=== PATIENT | female | born 1995 | race Caucasian/White ===

== ENCOUNTER 2022-06-05 12:54 | Outpatient (CLI) | payer SELFPAY ==
--- NOTE | ~2022-06-05 | US_ITS ---
EXAMINATION: US OB <=14 wk fetus w TV DATE: 06/05/2022 13:21 INDICATION: . Uncertain dates. TECHNIQUE: Real-time transabdominal and transvaginal pelvic ultrasound was performed. COMPARISON: None. FINDINGS: TRANSABDOMINAL ULTRASOUND: The uterus measures 9.3 x 4.2 x 5.4 cm. TRANSVAGINAL ULTRASOUND: There is an intrauterine gestational sac. A yolk sac is identified. The fet al crown rump length measures 5 mm, which correlates with an estimated gestational age of 6 weeks and 2 day(s) (+/-) 4 day(s). heart motion is identified measuring 128 beats per minute (bpm) by M- mode Doppler. The right ovary measures 3.1 x 2.2 x 2.2 cm. The left ovary measures 3.9 x 2.2 x 2.0 cm . There is no free fluid in the pelvis. IMPRESSION: 1. Single living intrauterine gestation with estimated date of delivery of 01/27/2023. Reviewed, dictated and finalized at location A. IMPRESSION: 1. Single living intrauterine gestation with estimated date of delivery of 01/15.
== END 2022-06-05 12:55 ==
PROVIDERS: PCP Family Medicine; Visit Provider Family Medicine
DX: Z34.91 Encounter for supervision of normal pregnancy, unspecified, first trimester (principal); Z3A.01 Less than 8 weeks gestation of pregnancy
CPT/HCPCS: 76801; 76817

== ENCOUNTER 2022-06-29 14:04 | Emergency (ER) | payer MEDICAID, SELFPAY ==
--- NOTE | ~2022-06-29 | US_ITS ---
EXAMINATION: US OB <= 14 weeks fetus DATE: 06/29/2022 14:53 INDICATION: Pain during first trimester TECHNIQUE: Real-time pelvic transabdominal and transvaginal ultrasound was performed. COMPARISON: None. FINDINGS: The uterus measures 12.9 x 9.2 x 6.1 cm. There is an intrauterine gestational sac. A yolk sac is identified. heart motion is identified measuring 166 beats per minute (bpm) by M-mode Do ppler. The crown rump length measures 3.3 cm, which correlates with an estimated gestational ag e of 10 weeks and 2 day(s) (+/-) 6 day(s). The right ovary measures 3.1 x 1.3 x 2.5 cm. The left ovary measures 2.2 x 2.4 x 1.0 cm. There is no free fluid in the pelvis. IMPRESSION: 1. Live intrauterine with an estimated gestational age of 10 weeks and 2 day(s) (+/-) 6 day (s) and an estimated delivery date of 01/23/2023. Reviewed, dictated and finalized at location F. IMPRESSION: 1. Live intrauterine with an estimated gestational age of 10 weeks an d 2 day(s) (+/-) 6 day(s) and an estimated delivery date of 01/23/2023.
[2022-06-29 14:24] VITALS: BP 106/64; PULSE 72; RESP 18; TEMP 36.3; O2SAT 98
[2022-06-29 14:46] LABS: Eosinophils Absolute Auto 0.09 K/mm3 (0.02-0.50); Eosinophils Percent Auto 1.1 % (1.0-6.0); Hematocrit 36.4 % (35.0-49.0); Hemoglobin 12.3 g/dL (12.0-15.0); Immature Granulocyte Absolute 0.02 K/mm3 (0.00-0.00); Immature Granulocyte Percent A 0.2 % (0.0-0.0); Lymphocytes Absolute Auto 1.96 K/mm3 (1.10-4.50); Mean Corpuscular HGB Conc 33.8 g/dL (32.0-36.0); Mean Corpuscular Hemoglobin 31.2 pg (27.0-31.0); Mean Corpuscular Volume 92.4 fL (78.0-102.0); Mean Platelet Volume 11.3 fl (9.2-11.8); Monocytes Absolute Auto 0.48 K/mm3 (0.10-0.90); Monocytes Percent Auto 5.9 % (2.0-11.0); Neutrophils Absolute Auto 5.6 K/mm3 (1.7-7.2); Neutrophils Percent Auto 68.8 % (50.0-70.0); Platelet Count Result 173 K/mm3 (150-420); Red Blood Count 3.94 M/mm3 (4.20-5.40); Red Cell Distribution Width 12.2 % (11.6-14.4); White Blood Count 8.2 K/mm3 (4.8-10.8)
--- NOTE | 2022-06-29 14:49 | PC.NURSE ---
1440 pt to US via w/c
--- NOTE | 2022-06-29 15:18 | PC.NURSE ---
[id number] pt returned from US no complaints at this time awaiting results. Pt denies pain at this time.
--- NOTE | 2022-06-29 15:50 | PC.NURSE ---
URINE SPECIMEN COLLECTED AND SENT TO LAB. PT AMBULATES TO AND RETURNS TO EXAM ROOM WITHOUT DIFFICULTY. WILL CONTINUE TO MONITOR.
[2022-06-29 15:53] LABS: Add Urine Microscopic? YES; Appearance Urine Slightly Cloudy (Clear); Bilirubin Urine Negative (Negative); Blood Urine Negative (Negative); Color Urine Yellow (Yellow); Glucose Urine UA Negative (Negative); Ketones Urine 3+ (Negative); Leukocyte Esterase Ur Trace (Negative); Nitrate Urine Negative (Negative); Protein Urine Negative (Negative); Specific Grav Ur 1.015 (1.010-1.020); Urobilinogen Urine 0.2 mg/dL (0.2-1.0)
--- NOTE | 2022-06-29 15:54 | ED.FEMALEGU ---
HPI - Female Genitourinary General Chief complaint: Urogenital-Female Stated complaint: FIRST TERM TROBBING IN PELVIC AREA Time Seen by Provider: 06/29/22 14:21 Source: patient Mode of arrival: ambulatory Limitations: no limitations History of Present Illness HPI Narrative: This is a 27-year-old female that is 11 weeks had an ultrasound performed which shows normal intrauterine on the 06 of June and presents today with some some pelvic throbbing otherwise some mild dysuria with no flank pain no fever chills no uterine bleeding no vaginal bleeding no dysuria no flank pain no nausea vomiting no diarrhea or constipation. MD elicited complaint: pelvic pain Related Data Allergies Allergy/AdvReac Type Severity Reaction Status Date / Time No Known Allergies Allergy Verified 06/29/22 14:34 Review of Systems Review of Systems: All systems reviewed & are unremarkable except as noted in HPI and below PMFSH Past Medical History Medical History Exam Const: General: healthy appearing and no acute distress HENMT: Head: normal to inspection Face/Nose/Sinus: Normal external nose present Face and sinus: normal facial exam Eyes: Conjunctivae: conjunctivae normal EOM: EOMs intact bilaterally Chest: Chest palpation & inspection: normal inspection of the chest Resp: Effort & Inspection: normal respiratory effort Auscultation: clear to auscultation bilaterally Cardio: Rate: regular rate Rhythm: regular rhythm GI: GI Palp: Yes Soft to palpation and Yes Tenderness to palpation present (GI) Urinary Catheter: Urinary Catheter: patent and draining Neuro: General: patient oriented x3, moves all extremities, no meningeal signs and no focal motor deficits Extrem: General: normal to inspection and no clubbing, cyanosis or edema Psych: Appearance: grossly normal Mental Status: mental status grossly normal Course Course Emergency Course: ultrasound revealed continued intrauterine patient is doing well labs reviewed with patient. Vital Signs Vital signs: Vital Signs Temperature 36.3 C L 06/29/22 14:24 Pulse Rate 72 06/29/22 14:24 Respiratory Rate 18 06/29/22 14:24 Blood Pressure 106/64 06/29/22 14:24 Pulse Oximetry 98 06/29/22 14:24 Oxygen Delivery Room Air 06/29/22 14:24 Temperature 36.3 C L 06/29/22 14:24 Pulse Rate 72 06/29/22 14:24 Respiratory Rate 18 06/29/22 14:24 Blood Pressure 106/64 06/29/22 14:24 Pulse Oximetry 98 06/29/22 14:24 Oxygen Delivery Room Air 06/29/22 14:24 MDM - Female Genitourinary Lab Data Result diagrams: 06/29/22 14:35 Labs: Lab Results 06/29/22 06/29/22 06/29/22 Range/Units 14:35 14:35 15:45 WBC 8.2 (4.8-10.8) K/mm3 RBC 3.94 L (4.20-5.40) M/mm3 Hgb 12.3 (12.0-15.0) g/dL Hct 36.4 (35.0-49.0) % MCV 92.4 (78.0-102.0) fL MCH 31.2 H (27.0-31.0) pg MCHC 33.8 (32.0-36.0) g/dL RDW 12.2 (11.6-14.4) % Plt Count 173 (150-420) K/mm3 MPV 11.3 (9.2-11.8) fl Immature Gran % (Auto) 0.2 H (0.0-0.0) % Neut % (Auto) 68.8 (50.0-70.0) % Lymph % (Auto) 24.0 (18.0-42.0) % [place] % (Auto) 5.9 (2.0-11.0) % Eos % (Auto) 1.1 (1.0-6.0) % Baso % (Auto) 0.0 (0.0-1.0) % Lymph # (Auto) 1.96 (1.10-4.50) K/mm3 [place] # (Auto) 0.48 (0.10-0.90) K/mm3 Eos # (Auto) 0.09 (0.02-0.50) K/mm3 Baso # (Auto) 0.00 (0.00-0.10) K/mm3 Abs Immat Gran (auto) 0.02 H (0.00-0.00) K/mm3 Absolute Neuts (auto) 5.6 (1.7-7.2) K/mm3 Absolute Nucleated RBC 0.00 (0.00-0.00) K/mm3 Nucleated RBC % 0.0 (0-0.0) % Beta HCG, Quant 36203.00 H (0-6) mIU/mL Urine Color Pending Urine Appearance Pending Urine pH Pending Ur Specific Whitman Pending Urine Protein Pending Urine Glucose (UA) Pending Urine Ketones Pending Ur Blo
[2022-06-29 15:56] LABS: RBC Urine None seen /hpf (0-2); Squamous Epithelial Cell Urine Moderate /hpf (Few); WBC Urine 0-3 /hpf (0-3)
[2022-06-29 15:57] LABS: Bacteria Urine 1+ /hpf; Mucus Urine Moderate /lpf
[2022-06-29 16:10] VITALS: BP 103/58; PULSE 57; RESP 14; O2SAT 100
--- NOTE | 2022-06-29 16:14 | PC.NURSE ---
1610 PT DECLINED HIV TESTING, REFUSAL SIGNED
== END 2022-06-29 16:10 | disposition home or self-care (01) ==
PROVIDERS: Emergency Provider Emergency Medicine
DX: N39.0 Urinary tract infection, site not specified (principal)
CPT/HCPCS: 36415; 76801; 81001; 84702; 85025; 99284

== ENCOUNTER 2022-07-31 10:19 | Outpatient (CLI) | payer OTHER, SELFPAY ==
[2022-07-31 11:15] LABS: Basophils Percent Auto 0.2 % (0.2-1.2); Eosinophils Percent Auto 0.2 % (0-4.4); Hematocrit 36.3 % (37.0-47.0); Hemoglobin 12.4 g/dL (12.0-15.0); Immature Granulocyte Absolute 0.03 K/mm3 (0.00-0.031); Immature Granulocyte Percent A 0.3 % (0-0.5); Lymphocytes Absolute Auto 1.35 K/mm3 (0.9-3.2); Lymphocytes Percent Auto 14.3 % (18.3-44.2); Mean Corpuscular HGB Conc 34.2 g/dl (32-36); Mean Corpuscular Hemoglobin 31.4 pg (26-34); Mean Corpuscular Volume 91.9 fl (80-100); Mean Platelet Volume 11.4 fl (7.4-10.4); Monocytes Absolute Auto 0.3 K/mm3 (0.1-0.6); Monocytes Percent Auto 3.2 % (2.6-8.5); Neutrophils Absolute Auto 7.7 K/mm3 (1.3-6.7); Neutrophils Percent Auto 81.8 % (45.5-73.1); Platelet Count Result 182 k/mm3 (150-375); Red Blood Count 3.95 M/mm3 (4.2-5.4); Red Cell Distribution Width 12.7 % (11.5-14.5); White Blood Count 9.5 K/mm3 (4.5-10.0)
[2022-07-31 12:05] LABS: HIV 1/2 Ab P24 Ag Result Negative (Negative)
[2022-07-31 12:18] LABS: Hepatitis B Surface Antigen Negative (Negative); Rubella IgG Antibody 9.1 IU/ML
[2022-08-01 10:20] LABS: Rapid Plasma Reagin Non-Reactive (NonReactive)
[2022-08-03 09:09] LABS: Varicella IgG Antibody <135.00 Index (>=165.00)
== END 2022-07-31 10:20 | disposition home or self-care (01) ==
PROVIDERS: Visit Provider Obstetrics & Gynecology
DX: Z34.90 Encounter for supervision of normal pregnancy, unspecified, unspecified trimester (principal); Z3A.00 Weeks of gestation of pregnancy not specified
CPT/HCPCS: 36415; 85025; 86592; 86644; 86703; 86747; 86762; 86787; 86850; 86900; 86901; 87086; 87340; G0432

== ENCOUNTER 2022-11-06 12:58 | Outpatient (CLI) | payer OTHER, SELFPAY ==
[2022-11-06 14:34] LABS: Basophils Percent Auto 0.2 % (0.2-1.2); Eosinophils Percent Auto 0.2 % (0-4.4); Hematocrit 32.7 % (37.0-47.0); Immature Granulocyte Absolute 0.12 K/mm3 (0.00-0.031); Immature Granulocyte Percent A 0.9 % (0-0.5); Lymphocytes Absolute Auto 1.38 K/mm3 (0.9-3.2); Lymphocytes Percent Auto 10.2 % (18.3-44.2); Mean Corpuscular HGB Conc 33.6 g/dl (32-36); Mean Corpuscular Volume 95.1 fl (80-100); Mean Platelet Volume 10.9 fl (7.4-10.4); Monocytes Absolute Auto 0.4 K/mm3 (0.1-0.6); Monocytes Percent Auto 3.2 % (2.6-8.5); Neutrophils Absolute Auto 11.6 K/mm3 (1.3-6.7); Neutrophils Percent Auto 85.3 % (45.5-73.1); Platelet Count Result 170 k/mm3 (150-375); Red Blood Count 3.44 M/mm3 (4.2-5.4); Red Cell Distribution Width 12.4 % (11.5-14.5); White Blood Count 13.6 K/mm3 (4.5-10.0)
[2022-11-06 14:39] LABS: Glucose 1 Hour PP 50gm Dose 133 mg/dL
[2022-11-06 15:19] LABS: HIV 1/2 Ab P24 Ag Result Negative (Negative)
[2022-11-06] MEDS: RHO(D) IMMUNE GLOBULIN 300 MCG/2 ML SYRINGE IM (17:28)
== END 2022-11-06 12:59 | disposition home or self-care (01) ==
PROVIDERS: Visit Provider Obstetrics & Gynecology
DX: Z34.90 Encounter for supervision of normal pregnancy, unspecified, unspecified trimester (principal)
CPT/HCPCS: 36415; 82947; 85025; 85461; 86703; 86850; 86900; 86901; 90384; 96372; G0432; J2790

== ENCOUNTER 2023-01-08 21:34 | Inpatient (IN) | payer OTHER, SELFPAY ==
[2023-01-08] VITALS (15 sets, daily range): BP systolic 102–128; BP diastolic 55–79; PULSE 87–105; O2SAT 100; BMI 31.2
--- NOTE | 2023-01-08 22:41 | LDADM ---
This patient, Aruna Gillis, was admitted to Labor/Delivery/Recovery 106 on 01/08/23 at 21:34. Plans for labor, pain management and were discussed with patient. Patient/family oriented to hospital policies and general routines including ID bracelet, bed and alarms, visiting hours, pain management, procedures, bathroom and other care routines, personal items, smoking policy, room service/diet and guest tray routines, security routines, and visiting hours. Patient/Family are encouraged to report perceived risks to care and to ask questions if they do not understand what they are told or what they should do. See OBIX for further documentation.
[2023-01-08] MEDS: LACTATED RINGERS 1,000 ML 125 ML IV CONT ×2 (22:50→23:54)
[2023-01-08 22:55] LABS: Basophils Percent Auto 0.3 % (0.2-1.2); Eosinophils Percent Auto 0.2 % (0-4.4); Hematocrit 37.4 % (37.0-47.0); Hemoglobin 11.9 g/dL (12.0-15.0); Immature Granulocyte Absolute 0.06 K/mm3 (0.00-0.031); Immature Granulocyte Percent A 0.4 % (0-0.5); Lymphocytes Absolute Auto 1.51 K/mm3 (0.9-3.2); Lymphocytes Percent Auto 10.3 % (18.3-44.2); Mean Corpuscular HGB Conc 31.8 g/dl (32-36); Mean Corpuscular Hemoglobin 30.4 pg (26-34); Mean Corpuscular Volume 95.7 fl (80-100); Mean Platelet Volume 12.7 fl (7.4-10.4); Monocytes Absolute Auto 0.9 K/mm3 (0.1-0.6); Neutrophils Absolute Auto 12.1 K/mm3 (1.3-6.7); Neutrophils Percent Auto 82.8 % (45.5-73.1); Platelet Count Result 123 k/mm3 (150-375); Red Blood Count 3.91 M/mm3 (4.2-5.4); Red Cell Distribution Width 13.1 % (11.5-14.5); White Blood Count 14.6 K/mm3 (4.5-10.0)
--- NOTE | 2023-01-08 23:31 | WPDANESEPP ---
Anes - Eval Pre Procedure Procedure: Labor epidural Date/Time: 01/08/23 23:31 Surgeon: Kumar Preop Diagnosis: Abd pain with contractions Pre Op Diagnosis: Contractions Patient Data Age: 27 Gender: F Height: 1.6 m Weight: 80 kg Last Vital Signs O2 Del Method Room Air 01/08/23 22:41 Allergies Allergy/AdvReac Type Severity Reaction Status Date / Time No Known Allergies Allergy Verified 01/08/23 10:09 Home Medications Medication Instructions Recorded Confirmed Type vitamins-iron fumarate 65 1 tablet PO DAILY 07/04/22 01/08/23 History mg iron-folic acid 1 mg tablet Laboratory Tests 01/08/23 01/08/23 22:46 22:46 WBC 14.6 K/mm3 H K/mm3 (4.5-10.0) RBC 3.91 M/mm3 L M/mm3 (4.2-5.4) Hgb 11.9 g/dL L g/dL (12.0-15.0) Hct 37.4 % % (37.0-47.0) MCV 95.7 fl fl (80-100) MCH 30.4 pg pg (26-34) MCHC 31.8 g/dl L g/dl (32-36) RDW 13.1 % % (11.5-14.5) Plt Count 123 k/mm3 L k/mm3 (150-375) MPV 12.7 fl H fl (7.4-10.4) Immature Gran % (Auto) 0.4 % % (0-0.5) Neut % (Auto) 82.8 % H % (45.5-73.1) Lymph % (Auto) 10.3 % L % (18.3-44.2) [place] % (Auto) 6.0 % % (2.6-8.5) Eos % (Auto) 0.2 % % (0-4.4) Baso % (Auto) 0.3 % % (0.2-1.2) Lymph # (Auto) 1.51 K/mm3 K/mm3 (0.9-3.2) [place] # (Auto) 0.9 K/mm3 H K/mm3 (0.1-0.6) Eos # (Auto) 0.0 K/mm3 K/mm3 (0-0.3) Baso # (Auto) 0.0 K/mm3 K/mm3 (0.0-0.1) Abs Immat Gran (auto) 0.06 K/mm3 H K/mm3 (0.00-0.031) Absolute Neuts (auto) 12.1 K/mm3 H K/mm3 (1.3-6.7) Absolute Nucleated RBC 0.0 K/mm3 K/mm3 (0.0-0.012) Nucleated RBC % 0.0 % % (0.0-0.2) RPR Pending Patient hx anesthesia problems: none Family hx anesthesia problems: none Results Review: All pre-operative results and documents have been reviewed as part of the pre-operative evaluation. [facility] Past Medical History Medical History Anxiety Overweight (BMI 25.0-29.9) Surgical History Surgical History History of gynecological procedure (~2014) scope for endometriosis Family History Family History Grandparent Malignant neoplasm of prostate maternal grandfather Acute myocardial infarction maternal grandfather Acute schizophrenia paternal grandmother Sibling Hearing loss Mental disorder Social History Social History Smoking status: Never smoker Alcohol intake: never Substance use: never Substance use type: does not use Lack of Transportation: No Lack of Food: Never True Current Housing: I Have Housing Concerned About Future Housing: No Difficulty Paying Gas/Electric Bills: No Difficulty Paying for Meds: No Currently Unemployed: No Education: High School Diploma/GED Difficulty w/ Childcare or Family Care: No Living arrangements: other Additional living arrangements comments: Occupation/Education: occupation 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
[2023-01-09] VITALS (113 sets, daily range): BP systolic 90–119; BP diastolic 42–90; PULSE 64–138; RESP 16; TEMP 36.2–37.2; O2SAT 81–100
[2023-01-09] MEDS: ONDANSETRON INJ 4 MG/2 ML VIAL IV PUSH (00:18)
[2023-01-09] MEDS: OXYTOCIN 30 UNITS/NS 500 ML 30 UNITS/500 ML BAG 6 UNITS IV CONT (07:47)
[2023-01-09] MEDS: LACTATED RINGERS 1,000 ML 125 ML IV CONT (07:48)
[2023-01-09 08:32] LABS: Rapid Plasma Reagin Non-Reactive (NonReactive)
[2023-01-09] MEDS: OXYTOCIN 30 UNITS/NS 500 ML 30 UNITS/500 ML BAG 125 UNITS IV CONT (11:05)
--- NOTE | 2023-01-09 11:27 | WPDHPUPDATE1 ---
History and Physical Update Update Date/Time: 01/09/23 11:27 History and Physical has been reviewed, including an updated exam of the patient. There are NO changes in the patient's condition. Risks, benefits, and alternatives have been discussed and questions answered. Patient agrees to proceed with procedure.
--- NOTE | 2023-01-09 11:27 | WPDOBADMIT ---
Obstetrics - Admit Note Admission Note: record reviewed. No pertinent additions to the history and/or any subsequent changes in the physical findings that are not consistent with the expected course of the were found. Additions to the history and/or subsequent changes in the physical findings follow. None.
--- NOTE | 2023-01-09 11:27 | PM.OBPRVD ---
OB - Delivery Note Procedure Induction method: None Delivery augmentation: Rupture of Membranes and Pitocin Delivery monitor: External FHT and External Uterine Route of delivery: Episiotomy description: None Laceration Description: Vaginal Delivery repair: chromic Specimen: No Quantitative Blood Loss (ml): 300 Anesthesia type: Epidural Disposition: Floor Complications: none Narrative: patient prepped in usual manner for this procedure. Maternal expulsive efforts readily delivered vertex over intact perineum. Rest baby was the without difficulty cord clamped cut and the placenta delivered spontaneously. Cervix vagina vulva were inspected with a midline vaginal wall laceration noted which was readily rendered hemostatic and approximated using a [id number] of 2-0 chromic suture. There were also some periurethral lacerations were not bleeding. At this point the immediate postoperative condition of mother baby with excellent and the procedure was considered terminated. Baby Weeks of gestation at delivery: 37 gender: Female Weight (pounds): 6 Weight (ounces): 13 presentation: vertex Placenta delivery description: Spontaneous Cord Vessel Description: 3 Vessels score one minute: 9 score five minutes: 9 AMG Delivery Billing Delivery Delivery: Delivery Charge
[2023-01-09] MEDS: IBUPROFEN 600 MG TABLET PO (12:08)
[2023-01-09] MEDS: WITCH HAZEL 40 PADS 1 PAD TOPICAL (12:48)
--- NOTE | 2023-01-09 15:04 | PC.NURSE ---
[id number] Primary RN is present in the room assisting mother with attempting to breastfeed. Introductions were made, then consulted with patient to assess needs related to . Mother shared her desires to breastfeed her infant. Resources provided for inpatient and outpatient services with the feeding sheet, mom/baby guide and name written on the white board. Mother voiced understanding of information and requested assistance. Mother works well with her with encouragement and education. Encouraged understanding of the benefits of skin to skin (demonstrating unwrapping infant and placing upright on her chest), stimulating with massage touch, changing positions to encourage wakefulness, how to watch for early feeding cues, responsive feeding, feeding on demand (aiming for 8-12 times in 24 hours, about every 2-3 hours), milk production, hand expression, building/maintaining a milk supply, duration of feeding, signs of adequate intake/output and how to record on the feeding sheet. is sleepy and reluctant. Demonstrated to mother different methods of stimulating for wakefulness. Mother return demonstrated how to hand express colostrum to her . After was spoon fed 5mls of colostrum was more eager to attempt to breastfeed. Reviewed positioning and ear, shoulder, hip alignment, supporting the breast to facilitate a deep latch with the sandwich U-shaped hold, asymmetrical latch (off-center), leading with the chin with a big, open, wide gape and body close to mother. Infant latched optimally to the left breast in cross cradle position. Education given to mother of how to visualize suck/swallow ratios and listen for drinking at the breast. was able to maintain latch without discomfort to mother. Nipple care reviewed with optimal latch and good positioning. Reviewed good handwashing when or touching the breast/nipples to prevent infection. Resources used to facilitate learning were used with the mom and baby guide. Mother voiced understanding of skin to skin, stimulating with massage touch, responsive feedings, hand expressed colostrum, talking to to encourage if it has been 2 -2.5 hours since the start of the last , to call if infant does not latch, or if there is discomfort with . Resources provided for inpatient/outpatient with business card, feeding sheet and the mom/baby guide. Mother voiced understanding of information, demonstrated learning and will call if there is a request for assistance. Reported to the primary RN.
[2023-01-09] MEDS: DOCUSATE SODIUM 100 MG CAPSULE PO (16:30)
[2023-01-09] MEDS: ACETAMINOPHEN 325 MG TABLET 650 MG PO (16:30)
[2023-01-10] MEDS: IBUPROFEN 600 MG TABLET PO ×3 (02:10→23:20)
[2023-01-10] MEDS: ACETAMINOPHEN 325 MG TABLET 650 MG PO ×3 (02:10→18:00)
[2023-01-10 02:35] LABS: Hematocrit 29.3 % (37.0-47.0); Hemoglobin 9.5 g/dL (12.0-15.0)
[2023-01-10 07:25] VITALS: BP 101/59; PULSE 78; RESP 16; TEMP 36.4; O2SAT 100
[2023-01-10 09:00] VITALS: PULSE 78; RESP 16; O2SAT 100
[2023-01-10] MEDS: WITCH HAZEL 40 PADS 1 PAD TOPICAL (09:00)
[2023-01-10] MEDS: MULTIVIT/MIN/PREN/FOL AC/IRON TABLET 1 TAB PO (09:00)
[2023-01-10] MEDS: POLYSACCHARIDE IRON COMPLEX 150 MG CAPSULE PO ×2 (09:00→18:00)
[2023-01-10] MEDS: DOCUSATE SODIUM 100 MG CAPSULE PO ×2 (09:00→18:00)
--- NOTE | 2023-01-10 10:19 | PC.NURSE ---
[id number] Purposefully rounded to assess needs. Mother states she breastfed at 0900 effectively, visualizing/hearing swallowing with no pain. Mother verbalizes she is able to independently latch with appropriate positioning/alignment. She denies any nipple discomfort and is responsively . Infant is currently meeting outcomes for weight, output, jaundice and feeding frequencies of 8-12 times in 24 hours. Mother declines any additional assistance/education at this time. Mother is encouraged to call for assistance if her infant doesn?t latch or there is discomfort with latching. Mother voiced understanding of information shared and the mom reminded of the mom/baby guide for an additional resource. Reported to the primary RN.
--- NOTE | 2023-01-10 10:46 | WPDANLDPN2 ---
Anes-Prog Note L&D Date/Time: 01/10/23 10:46 Comfortable throughout: labor and delivery Neuraxial method: epidural Epidural/Spinal procedure site: clean & non-tender Neuro status: Neuro function grossly intact. Cardiovascular status: normal Respiratory status: normal Airway patency: baseline Mental status: baseline Post-Op hydration status: normal Vital Signs: Last Vital Signs Temp 36.4 C L 01/10/23 07:25 Pulse 78 01/10/23 07:25 Resp 16 01/10/23 07:25 BP 101/59 L 01/10/23 07:25 Pulse Ox 100 01/10/23 07:25 O2 Del Method Room Air 01/09/23 16:30 Pain score (VAS): 3 I/O: Intake & Output 01/09/23 01/10/23 01/10/23 23:59 07:59 15:59 Intake Total 1000 Balance 1000 Post-procedural complaints: none Patient feedback: Patient satisfied with anesthetic care.
[2023-01-10] MEDS: MEASLES,MUMPS,RUBELLA VACCINE 0.5 ML VIAL SUB-Q (13:16)
--- NOTE | 2023-01-10 15:06 | PM.OBPNVD ---
OB - PN: Subj Subjective Date/time seen: 01/10/23 15:06 day 1 status post vaginal delivery. Patient is having minimal bleeding though she is having fair amount of cramping, especially with which is going well. No concerns regarding anxiety depression or other issues to this point from a emotional/psychological standpoint. VSS/Afebrile Abdomen positive bowel sounds soft uterus appropriately tender Assessment: 1. day 1 status post vaginal delivery... no evidence of issues which she had been concerned about prior to delivery. Therefore at this point we will not start the sertraline that we had ordered previously though if needed we will start that once she goes home or has any type of issues. Plan: 1. Routine care 2. plan discharge tomorrow with 3 week follow-up in office OB - PN: Obj Data Labs 01/10/23 02:12 Labs: Laboratory Results - last 24 hr 01/10/23 02:12 Hgb 9.5 L Hct 29.3 L Blood Type O Negative Antibody Screen TNP Screen Negative Baby's Blood Type O pos Baby's JAIRON Negative Doses of RhIg Required 1 OB - PN A/P Time Spent With Patient Time: Total time spent is greater than 50% in coordination of care (as documented) at patient's floor/unit and/or counseling patient:
[2023-01-10] MEDS: RHO(D) IMMUNE GLOBULIN 300 MCG/2 ML SYRINGE IM (15:31)
[2023-01-10 21:13] VITALS: BP 101/59; PULSE 70; RESP 16; TEMP 36.7
[2023-01-11 07:50] VITALS: BP 108/66; PULSE 82; RESP 16; TEMP 37.1; O2SAT 100
--- NOTE | 2023-01-11 08:57 | PM.OBDSVD ---
DS: Admitting Diagnosis Discharge Date 01/11/2023 Admitting Diagnosis DS: Discharge Diagnosis Discharge Diagnosis (1) , delivered: Code(s): O80 - Encounter for full-term uncomplicated delivery Status: Acute OB - DS: Summary OB Procedures : None OB Procedures Intrapartum: Spontaneous Vag Delivery OB Procedures: : None Time Spent with Patient Time attestation: Total time spent providing and/or coordinating discharge services: DS: Data Data Completed and Pending Labs on day of discharge: Labs from last 24 hours 01/10/23 02:12 Blood Type O Negative Antibody Screen TNP Screen Negative Baby's Blood Type O pos Baby's JAIRON Negative Doses of RhIg Required 1 Discharge Plan Discharge Discharging Clinician: Duc Heath Patient Disposition: Home, Self-Care Activity: as tolerated Diet: as tolerated Discharge Instructions: Education: Mom and Baby Guide Given to: Mother Follow-Up: Call your delivering provider's office for an appointment to be seen in:3 Weeks Mom and baby should come to the [facility] for the follow-up appointment. Appointment Date/Time: 01/12 @ 0900 What to expect at your follow-up visit: Blood Pressure Check Physical Assessment Call [phone] if you are unable to keep your appointment time. BREAST CARE: * Wear a snug supportive bra. * For engorgement discomfort: Breast Feeding: * Apply warm moist washcloths * Express milk as needed to relieve engorgement * Wear loose clothing Bottle Feeding: * May apply ice packs * For sore nipples: * Identify correct latch-on * Apply warm moist washcloths before and after nursing * Air dry nipples after nursing * May apply Lansinoh cream to nipples PERINEAL CARE: * Until bleeding stops, use your ru bottle after urinating * Change your pad frequently throughout the day * You may take sitz baths several times a day (fill your bathtub with warm water and soak for 20 minutes.) Do NOT bathe in the water * No tub baths until seen by your physician - You may shower ACTIVITY: * Rest as much as possible. * Do not exercise or lift anything heavier than your baby (such as laundry or other children.) * Avoid stairs or driving as much as possible. * Do not put anything into the vagina. No douching, tampons, or sexual activity until seen by physician. NOTIFY PHYSICIAN IF YOU HAVE ANY QUESTIONS OR IF ANY OF THE FOLLOWING SYMPTOMS OCCUR: * If your vaginal area becomes red, swollen, or more painful than what you have experienced in the hospital. * If your vaginal bleeding becomes foul smelling. * If your vaginal bleeding becomes more heavy than a period or if your bleeding changes from pink to bright red. However, you may pass an occasional walnut-sized clot once or twice for the first week . * If you experience a sharp, shooting pain in your calves. * If you discover a hard, reddened area on your breast or if you experience flu-like symptoms. * If you have a fever of 100.4 or greater DIET: * Eat regular, well-balanced meals. * Drink plenty of fluids daily. If , drink to thirst. Patient Instructions: Antibiotic Form Stand Alone Forms: General Discharge Information Follow-up/Referrals: Duc Heath MD [Physician] - 3 Weeks Discharge Medications: New ibuprofen 600 mg Tablet 600 mg PO Q6H PRN (Reason: Cramping) Qty: 30 0RF Continued vit-iron fum-folic ac 65 mg iron- 1 mg tablet 1 tablet PO DAILY Date of admission: 01/08/23 21:34 Primary Care Provider: PHYSICIAN,DAMAGE ADJUSTER Admitting Provider: Duc Heath Attending physician on admission: [facility] Condition: Stable
[2023-01-11] MEDS: DOCUSATE SODIUM 100 MG CAPSULE PO (09:17)
[2023-01-11] MEDS: ACETAMINOPHEN 325 MG TABLET 650 MG PO (09:17)
[2023-01-11] MEDS: IBUPROFEN 600 MG TABLET PO (09:19)
[2023-01-11] MEDS: MULTIVIT/MIN/PREN/FOL AC/IRON TABLET 1 TAB PO (09:19)
[2023-01-11 09:20] VITALS: PULSE 82; RESP 16; O2SAT 100
[2023-01-11] MEDS: POLYSACCHARIDE IRON COMPLEX 150 MG CAPSULE PO (09:20)
--- NOTE | 2023-01-11 12:00 | PC.NURSE ---
Patient was given the opportunity to view the discharge video Mother & Baby Care, The First Two Weeks and to ask questions. Patient declined viewing the video and has been given the mother/baby guide for home reference. PT received discharge instructions per protocol and verbalized understanding of such care.
--- NOTE | 2023-01-11 12:23 | PC.NURSE ---
PT discharged to home ambulatory accompanied by spouse and and taken to waiting car. Follow up appts confirmed
--- NOTE | 2023-01-11 13:38 | PC.NURSE ---
[id number] Mother led the conversation with her experience and plan to feed her so far and her ability to independently latch optimally without discomfort and demonstrated effective to the left breast using cross cradle. Reminded mother to use good handwashing technique to prevent infection. Mother is feeding appropriately for growth of and understands stimulating infant to eat if needed. Infant has had appropriate feedings in the last 24 hours meets the outcomes for weight, output and jaundice at this time. Mother states she is confident to continue effectively her infant at home, when to call for assistance and denies any additional assistance or education at this time. Discussed the risks and benefits of formula feeding. Reinforced understanding of milk production, transition of milk, signs of adequate intake, transition of stool, prevention/relief of engorgement, responsive watching for feeding cues, the different methods of stimulating to breastfeed 2-3 hours after the start of the last feeding, community resources, medication information reviewed per [employer] and when to call a provider using the resource of the mom and baby guide. Mother voiced understanding of the education shared. Reported to the primary RN.
--- NOTE | 2023-01-11 14:47 | PC.NURSE ---
[phone] Mother led the conversation with her experience and plan to feed her so far and her ability to independently latch optimally without discomfort. Reminded parents to use good handwashing technique to prevent infection. Mother is feeding appropriately for growth of and understands stimulating to eat if needed. Infant has had appropriate feedings in the last 24 hours meets the outcomes for weight, output and jaundice at this time. Mother states she is confident to continue effectively breastfeed her infant at home, when to call for assistance and denies any additional assistance or education at this time. Mother demonstrated effective to the left breast using cross cradle positioning. Reinforced understanding of milk production, transition of milk, signs of adequate intake, transition of stool, prevention/relief of engorgement, responsive watching for feeding cues, the different methods of stimulating to breastfeed 2-3 hours after the start of the last feeding, community resources, medication information reviewed per [employer] and when to call a provider using the resource of the mom and baby guide. Mother voiced understanding of the education shared.
== END 2023-01-11 12:23 | disposition home or self-care (01) | DRG 560 ==
LOC: ANHLDR 22:43 → ANHOB2 01-09 13:11
PROVIDERS: Admitting Provider Obstetrics & Gynecology; Visit Provider Obstetrics & Gynecology
DX: O70.0 First degree perineal laceration during delivery (principal); Z37.0 Single live birth; Z3A.37 37 weeks gestation of pregnancy
CPT/HCPCS: 36415; 85014; 85018; 85025; 85461; 86592; 86850; 86880; 86900; 86901; 86902; 90384; 90710; A9270; J2405; J2590; J2790; J2795; J7120